=== PATIENT | male | born 1980 | race African-American/Black ===

== ENCOUNTER 2022-02-21 15:06 | Emergency (ER) | payer BC ==
[2022-02-21] MEDS ORDERED: Ketorolac Tromethamine 30 MG/ML VIAL ONE (15:35)
== END 2022-02-21 16:00 | disposition home or self-care (01) ==
LOC: CSHERS 15:06
DX: M54.42 Lumbago with sciatica, left side (principal); I10 Essential (primary) hypertension; J45.909 Unspecified asthma, uncomplicated; I48.91 Unspecified atrial fibrillation
CPT/HCPCS: 96372; 99283; J1885